=== PATIENT | male | born 1965 | race Caucasian/White ===

== ENCOUNTER 2017-12-26 14:45 | Observation (INO) | payer MEDICAID ==
[~2017-12-26] VITALS: Ht 188 cm; Wt 97.0 kg
[2017-12-26 15:29] LABS: BASOPHILS # (AUTO) 0.11 x10^3/uL (0-0.1); BASOPHILS % (AUTO) 1 % (0-1); EOSINOPHILS # (AUTO) 0.36 x10^3/uL (0-0.4); EOSINOPHILS % (AUTO) 4 % (1-7); LYMPHOCYTES # (AUTO) 1.64 x10^3/uL (1-3.4); LYMPHOCYTES % (AUTO) 18 % (22-44); MD NO; MEAN CORPUSCULAR HEMOGLOBIN 31.4 pg (27.5-34.5); MEAN CORPUSCULAR HGB CONC 34.2 g/dL (33.2-36.2); MEAN CORPUSCULAR VOLUME 91.9 fL (81-97); MEAN PLATELET VOLUME 9.3 fL (7.4-10.4); MONOCYTES # (AUTO) 0.82 x10^3/uL (0.2-0.8); MONOCYTES % (AUTO) 9 % (2-9); NEUTROPHILS # (AUTO) 6.27 x10^3/uL (1.8-6.8); NEUTROPHILS % (AUTO) 68 % (42-75); PLATELET COUNT 275 x10^3/uL (130-400); RED BLOOD COUNT 5.33 x10^6/uL (4.38-5.82); RED CELL DISTRIBUTION WIDTH 12.9 % (9.4-14.8)
[2017-12-26 15:39] LABS: ALBUMIN 4.2 g/dL (3.4-5.0); ANION GAP 8 mmol/L (5-15); CALCIUM 9.2 mg/dL (8.5-10.1); CHLORIDE 108 mmol/L (98-107); SALICYLATE LEVEL 2.7 mg/dL (2.8-20.0)
[2017-12-26 15:40] LABS: ACETAMINOPHEN < 2 mcg/mL (10-30)
[2017-12-26 15:47] LABS: AMPHETAMINE SCREEN, URINE Negative (Negative); BARBITURATE SCREEN, URINE Negative (Negative); BENZODIAZEPINE SCREEN, URINE Negative (Negative); CANNABINOID SCREEN, URINE Positive (Negative); METHADONE SCREEN, URINE Negative (Negative); OPIATE SCREEN, URINE Negative (Negative)
[2017-12-26 15:48] LABS: COCAINE SCREEN, URINE Negative (Negative)
[2017-12-26] MEDS ORDERED: DOCUSATE 100 MG CAPSULE PO PRN (20:00)
[2017-12-26] MEDS: NICOTINE 14MG/24 HR PATCH.TD24 TD SCH (20:00)
[2017-12-26] MEDS ORDERED: ONDANSETRON ODT 4 MG PO PRN (20:00)
[2017-12-26] MEDS ORDERED: ACETAMINOPHEN 325 MG TABLET PO PRN (20:00)
[2017-12-26] MEDS ORDERED: ZIPRASIDONE 20 MG INJ IM PRN (20:00)
[2017-12-26] MEDS ORDERED: FLUO40CA9 PO (20:36)
[2017-12-26] MEDS ORDERED: LITH300T3 PO (20:36)
[2017-12-26] MEDS ORDERED: LITH600C PO (20:36)
[2017-12-26] MEDS ORDERED: HALO5TAB5 PO (20:36)
[2017-12-26] MEDS ORDERED: ALBU1.25 INH (20:36)
[2017-12-26 20:48] VITALS: BP 142/92
[2017-12-27 08:05] VITALS: BP 125/72
[2017-12-27] MEDS ORDERED: ALBUTEROL SULFATE INH PRN (15:00)
[2017-12-27] MEDS: LORazepam 1MG TABLET PO PRN (18:06)
[2017-12-27] MEDS ORDERED: ALBUTEROL SULFATE 2.5 MG/3 ML ONE (18:10)
[2017-12-27] MEDS ORDERED: PHARMACY MAY ADJ FOR RENAL FX MC PRN (18:30)
[2017-12-27 19:45] VITALS: BP 108/69
[2017-12-27] MEDS: NICOTINE 14MG/24 HR PATCH.TD24 TD SCH (20:00)
[2017-12-27] MEDS ORDERED: LITHIUM CARBONATE 300 MG CAPSULE PO ONE (21:30)
[2017-12-28 08:15] VITALS: BP 118/78
[2017-12-28] MEDS: FLUOXETINE HCL 20 MG CAPSULE PO SCH (09:08)
[2017-12-28] MEDS: LORazepam 1MG TABLET PO PRN ×2 (09:16→17:35)
[2017-12-28 13:41] LABS: ANION GAP 5 mmol/L (5-15); CALCIUM 9.1 mg/dL (8.5-10.1); CHLORIDE 109 mmol/L (98-107)
[2017-12-28] MEDS: NICOTINE 14MG/24 HR PATCH.TD24 TD SCH (20:05)
[2017-12-28] MEDS: LITHIUM CARBONATE 300 MG CAPSULE PO SCH (20:53)
[2017-12-28 21:21] VITALS: BP 112/77
[2017-12-29 08:12] VITALS: BP 114/78
[2017-12-29] MEDS: LITHIUM CARBONATE 300 MG CAPSULE PO SCH ×2 (08:19→20:44)
[2017-12-29] MEDS: FLUOXETINE HCL 20 MG CAPSULE PO SCH (08:19)
[2017-12-29] MEDS: LORazepam 1MG TABLET PO PRN ×2 (10:47→17:45)
[2017-12-29] MEDS ORDERED: ALBUTEROL SULFATE 2.5 MG/3 ML ONE (12:40)
[2017-12-29] MEDS: ALBUTEROL SULFATE 2.5 MG/3 ML NPPB PRN (12:45)
[2017-12-29 16:43] LABS: FREE T4 (FREE THYROXINE) 1.03 ng/dL (0.76-1.46); THYROID STIMULATING HORMONE 0.83 mIU/L (0.358-3.740)
[2017-12-29 19:58] VITALS: BP 121/80
[2017-12-29] MEDS: NICOTINE 14MG/24 HR PATCH.TD24 TD SCH (20:46)
[2017-12-30 08:01] VITALS: BP 128/86
[2017-12-30] MEDS: FLUOXETINE HCL 20 MG CAPSULE PO SCH (09:04)
[2017-12-30] MEDS: LITHIUM CARBONATE 300 MG CAPSULE PO SCH ×2 (09:04→20:38)
[2017-12-30] MEDS: LORazepam 1MG TABLET PO PRN ×2 (09:08→17:01)
[2017-12-30] MEDS: ALBUTEROL SULFATE 2.5 MG/3 ML NPPB PRN (09:20)
[2017-12-30 19:39] VITALS: BP 106/70
[2017-12-30] MEDS: NICOTINE 14MG/24 HR PATCH.TD24 TD SCH (20:40)
[2017-12-30] MEDS: ZOLPIDEM 5MG TABLET PO PRN (20:41)
[2017-12-31 08:00] VITALS: BP 106/72
[2017-12-31] MEDS: LITHIUM CARBONATE 300 MG CAPSULE PO SCH ×2 (08:41→20:03)
[2017-12-31] MEDS: FLUOXETINE HCL 20 MG CAPSULE PO SCH (08:42)
[2017-12-31] MEDS: LORazepam 1MG TABLET PO PRN ×3 (08:47→18:16)
[2017-12-31] MEDS: ALBUTEROL SULFATE 2.5 MG/3 ML NPPB PRN ×2 (09:05→20:10)
[2017-12-31 19:44] VITALS: BP 110/69
[2017-12-31] MEDS: NICOTINE 14MG/24 HR PATCH.TD24 TD SCH (20:04)
[2017-12-31] MEDS: ZOLPIDEM 5MG TABLET PO PRN (20:06)
[2018-01-01] MEDS: FLUOXETINE HCL 20 MG CAPSULE PO SCH (08:09)
[2018-01-01] MEDS: LITHIUM CARBONATE 300 MG CAPSULE PO SCH ×2 (08:10→21:08)
[2018-01-01] MEDS: LORazepam 1MG TABLET PO PRN ×3 (08:14→17:15)
[2018-01-01 08:32] VITALS: BP 110/77
[2018-01-01] MEDS: ALBUTEROL SULFATE 2.5 MG/3 ML NPPB PRN (19:10)
[2018-01-01 19:31] VITALS: BP 108/76
[2018-01-01] MEDS: ZOLPIDEM 5MG TABLET PO PRN (21:07)
[2018-01-01] MEDS: NICOTINE 14MG/24 HR PATCH.TD24 TD SCH (21:08)
[2018-01-02] MEDS: LORazepam 1MG TABLET PO PRN ×3 (05:28→17:49)
[2018-01-02 07:51] VITALS: BP 118/79
[2018-01-02] MEDS: LITHIUM CARBONATE 300 MG CAPSULE PO SCH ×2 (08:13→20:37)
[2018-01-02] MEDS: FLUOXETINE HCL 20 MG CAPSULE PO SCH (08:13)
[2018-01-02] MEDS: ALBUTEROL SULFATE 2.5 MG/3 ML NPPB PRN (09:33)
[2018-01-02 19:28] VITALS: BP 102/67
[2018-01-02] MEDS: NICOTINE 14MG/24 HR PATCH.TD24 TD SCH ×2 (20:00→20:36)
[2018-01-02] MEDS: ZOLPIDEM 5MG TABLET PO PRN (20:36)
[2018-01-03 08:07] VITALS: BP 104/58
[2018-01-03] MEDS: LITHIUM CARBONATE 300 MG CAPSULE PO SCH ×2 (08:23→20:34)
[2018-01-03] MEDS: FLUOXETINE HCL 20 MG CAPSULE PO SCH (08:23)
[2018-01-03] MEDS: LORazepam 1MG TABLET PO PRN ×3 (08:24→19:13)
[2018-01-03] MEDS: ALBUTEROL SULFATE 2.5 MG/3 ML NPPB SCH ×3 (09:00→20:07)
[2018-01-03] MEDS: NICOTINE 14MG/24 HR PATCH.TD24 TD SCH (19:15)
[2018-01-03 19:23] VITALS: BP 120/83
[2018-01-03] MEDS: ZOLPIDEM 5MG TABLET PO PRN (20:34)
[2018-01-04] MEDS: LITHIUM CARBONATE 300 MG CAPSULE PO SCH ×2 (08:06→19:42)
[2018-01-04] MEDS: FLUOXETINE HCL 20 MG CAPSULE PO SCH (08:07)
[2018-01-04] MEDS: LORazepam 1MG TABLET PO PRN ×2 (08:11→15:30)
[2018-01-04 08:25] VITALS: BP 103/54
[2018-01-04] MEDS: ALBUTEROL SULFATE 2.5 MG/3 ML NPPB SCH ×2 (09:00→20:40)
[2018-01-04] MEDS ORDERED: ZIPRASIDONE 20 MG INJ IM PRN (13:30)
[2018-01-04 19:35] VITALS: BP 115/71
[2018-01-04] MEDS: ZOLPIDEM 5MG TABLET PO PRN (19:42)
[2018-01-04] MEDS: NICOTINE 14MG/24 HR PATCH.TD24 TD SCH (19:42)
[2018-01-05] MEDS: LORazepam 1MG TABLET PO PRN ×2 (05:17→10:02)
[2018-01-05 08:00] VITALS: BP 125/74
[2018-01-05] MEDS: LITHIUM CARBONATE 300 MG CAPSULE PO SCH (08:37)
[2018-01-05] MEDS: FLUOXETINE HCL 20 MG CAPSULE PO SCH (08:37)
[2018-01-05] MEDS: ALBUTEROL SULFATE 2.5 MG/3 ML NPPB SCH (09:00)
== END 2018-01-05 11:04 | disposition home or self-care (01) ==
LOC: ED 16:32 → EDIP 18:57 → SUATTDRO 19:07 → 2N 20:28
PROVIDERS: ADMIT Hospitalist; ATTEND Hospitalist
DX: R45.850 Homicidal ideations (principal); J45.909 Unspecified asthma, uncomplicated; F41.9 Anxiety disorder, unspecified; F31.30 Bipolar disorder, current episode depressed, mild or moderate severity, unspecified; F29 Unspecified psychosis not due to a substance or known physiological condition; F17.210 Nicotine dependence, cigarettes, uncomplicated; E86.0 Dehydration; N17.9 Acute kidney failure, unspecified
CPT/HCPCS: 36415; 80048; 80178; 80307; 80329; 82040; 84439; 84443; 85025; 94640; 99285; G0378; J7613; G0480

== ENCOUNTER 2020-08-09 03:36 | Observation (INO) | payer MEDICAID ==
[~2020-08-09] VITALS: Ht 188 cm; Wt 88.0 kg
[~2020-08-09 03:36] MED LIST: ALBU1.25 INH; ASPI-963 PO; ATOR-2 PO; DIPH25CA61 PO; FLUO40CA2 PO; FLUO40CA9 PO; HALO5TAB5 PO; LITH150C PO; LITH300T3 PO; LITH600C PO; METO25TA35 PO; SYMBICORT; TICA90TA PO
--- NOTE | 2020-08-09 04:55 | NUR ---
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 Patient is resting comfortably in bed. Bed in lowest, rails engaged, call light on lap. UA OBTAINED AND SENT TO LAB. LE.
[2020-08-09 05:15] LABS: MICROSCOPIC AUTO
[2020-08-09] MEDS ORDERED: KETOROLAC 30 MG/1 ML ONE (05:22)
[2020-08-09 05:24] LABS: BASOPHILS % (AUTO) 1 % (0-1); EOSINOPHILS % (AUTO) 6 % (1-7); LYMPHOCYTES % (AUTO) 18 % (22-44); MEAN CORPUSCULAR HEMOGLOBIN 31.5 pg (27.5-34.5); MEAN CORPUSCULAR HGB CONC 35.2 g/dL (33.2-36.2); MEAN PLATELET VOLUME 10.1 fL (7.4-10.4); MONOCYTES % (AUTO) 13 % (2-9); NEUTROPHILS % (AUTO) 63 % (42-75); PLATELET COUNT 258 x10^3/uL (130-400); RED BLOOD COUNT 5.18 x10^6/uL (4.38-5.82); RED CELL DISTRIBUTION WIDTH 13.2 % (9.4-14.8)
[2020-08-09] MEDS ORDERED: KETOROLAC 30 MG/1 ML IVPush ONE (05:30)
[2020-08-09] MEDS ORDERED: SODIUM CHLORIDE FLUSH 10ML SYR IVF ONE (05:30)
[2020-08-09 05:32] LABS: ALANINE AMINOTRANSFERASE 21 U/L (12-78); ALBUMIN 3.6 g/dL (3.4-5.0); ANION GAP 5 mmol/L (5-15); CALCIUM 8.6 mg/dL (8.5-10.1); CHLORIDE 110 mmol/L (98-107)
[2020-08-09 05:35] LABS: ALKALINE PHOSPHATASE 56 U/L (45-117); BILIRUBIN,TOTAL 0.5 mg/dL (0.2-1.0); CREATININE 1.22 mg/dL (0.7-1.3); TOTAL PROTEIN 7.4 g/dL (6.4-8.2)
--- NOTE | 2020-08-09 05:42 | NUR ---
PT MEDICATED PER MAR FOR PAIN, NAD, Patient is resting comfortably in bed. Bed in lowest, rails engaged, call light on lap. Vital Signs within normal limits. WCTM.
--- NOTE | 2020-08-09 06:49 | NUR ---
Patient is resting comfortably in bed. Bed in lowest, rails engaged, call light on lap. Vital Signs within normal limits. WCTM. REPORT TO ASHU NG, PT CARE TRANSFERRED AT THIS TIME.
--- NOTE | 2020-08-09 07:09 | NUR ---
REPORT FROM REYMUNDO, ASSUME CARE OF PT AT THIS TIME.
[2020-08-09] MEDS ORDERED: HYDROmorphone 1 MG/ML, 1ML INJ IV ONE (07:30)
--- NOTE | 2020-08-09 07:30 | NUR ---
ALL RESULTS BACK, PT FOR RECHECK.
[2020-08-09] MEDS ORDERED: HYDROmorphone 1 MG/ML, 1ML INJ ONE (07:37)
[2020-08-09] MEDS ORDERED: ONDANSETRON 2MG/ML, 2ML ONE ×3 (07:55→11:06)
[2020-08-09] MEDS ORDERED: ONDANSETRON 2MG/ML, 2ML IVPush ONE (08:00)
--- NOTE | 2020-08-09 08:01 | NUR ---
PT MEDICATED PER ERP ORDER FOR PAIN, STATES SLIGHT NAUSEA WITH MEDICATION. ERP NOTIFIED, ZOFRAN GIVEN. VSS/UPDATED IN COMPUTER.
--- NOTE | 2020-08-09 08:10 | NUR ---
MICHAEL DELANEY COLLECTED/WALKED TO LAB.
[2020-08-09] MEDS ORDERED: SODIUM CHLORIDE 0.9% 1,000ML IVBOLUS ONE (08:30)
--- NOTE | 2020-08-09 08:44 | NUR ---
WHO FORM STARTED, MED REC COMPLETED. BELONGING LIST COMPLETED/SIGNED BY PT.
[2020-08-09] MEDS ORDERED: OMNIPAQUE 350 MG/ML, 50 ML BOTTLE ONE (09:51)
[2020-08-09] MEDS ORDERED: CEFAZOLIN 1,000 MG ONE (09:54)
[2020-08-09] MEDS ORDERED: PROPOFOL 10 MG/ML, 20ML ONE (09:54)
[2020-08-09] MEDS ORDERED: SUCCINYLCHOLINE 20 MG/ML, 10ML ONE (09:54)
[2020-08-09] MEDS ORDERED: MIDAZOLAM 1 MG/ML, 2ML ONE (09:57)
[2020-08-09] MEDS ORDERED: ONDANSETRON 2MG/ML, 2ML IVPush PRN (11:00)
[2020-08-09] MEDS ORDERED: LABETALOL 5MG/ML, 20ML IV PRN (11:00)
[2020-08-09] MEDS ORDERED: ALBUTEROL SULFATE 2.5 MG/3 ML NPPB PRN (11:00)
[2020-08-09] MEDS ORDERED: FENTANYL PF 100 MCG/2ML IV PRN (11:00)
[2020-08-09] MEDS ORDERED: PROMETHAZINE 25 MG/ML, 1ML IV PRN (11:00)
[2020-08-09] MEDS ORDERED: METOCLOPRAMIDE 5 MG/ML, 2ML IV PRN (11:00)
[2020-08-09] MEDS ORDERED: OXYcodone 5 MG/5 ML ORAL.SOL UDC PO PRN (11:00)
[2020-08-09] MEDS ORDERED: DIAZEPAM 5 MG/ML, 2ML IV PRN ×2 (11:00)
[2020-08-09] MEDS ORDERED: HYDROmorphone 1 MG/ML, 1ML INJ IV PRN ×2 (11:00→13:30)
[2020-08-09] MEDS ORDERED: MEPERIDINE/PF 25MG/0.5ML IVPush PRN (11:00)
[2020-08-09] MEDS ORDERED: hydrALAzine 20 MG/ML, 1ML IV PRN (11:00)
[2020-08-09] MEDS ORDERED: KETOROLAC 30 MG/1 ML IV PRN ×2 (11:00→13:30)
[2020-08-09] MEDS ORDERED: hydrALAzine 20 MG/ML, 1ML ONE (11:10)
[2020-08-09] MEDS ORDERED: OXYcodone 5 MG/5 ML ORAL.SOL UDC ONE (11:14)
[2020-08-09 11:45] VITALS: BP 169/83
[2020-08-09 13:21] VITALS: BP 161/92
[2020-08-09] MEDS ORDERED: HYDROcodone/APAP 5/325 TABLET PO PRN (13:30)
[2020-08-09] MEDS ORDERED: OXYBUTYNIN CHLORIDE 5 MG TABLET PO PRN (13:30)
[2020-08-09] MEDS ORDERED: ONDANSETRON 2MG/ML, 2ML IV PRN (13:30)
[2020-08-09] MEDS: LACTATED RINGERS 1,000 ML IV SCH (13:30)
[2020-08-09 16:45] VITALS: BP 163/83
[2020-08-09 18:47] VITALS: BP 121/73
[2020-08-09 20:13] VITALS: BP 133/84
[2020-08-09] MEDS ORDERED: FENTANYL PF 100 MCG/2ML ONE (20:54)
[2020-08-09] MEDS ORDERED: DIPHENHYDRAMINE 50 MG CAPSULE PO PRN (21:00)
[2020-08-09] MEDS ORDERED: PROMETHAZINE 25 MG/ML, 1ML IM PRN (22:30)
[2020-08-09] MEDS ORDERED: ALBUTEROL HFA 90 MCG/SPRAY INH PRN (23:30)
[2020-08-10 00:37] VITALS: BP 140/84
[2020-08-10] MEDS ORDERED: ALBUTEROL SULFATE 2.5 MG/3 ML NPPB PRN (02:00)
[2020-08-10] MEDS: LACTATED RINGERS 1,000 ML IV SCH ×2 (02:03→11:00)
[2020-08-10 04:10] VITALS: BP 131/74
[2020-08-10 07:32] VITALS: BP 138/85
[2020-08-10] MEDS ORDERED: TAMSULOSIN 0.4 MG CAP.ER.24H PO SCH (09:00)
[2020-08-10] MEDS ORDERED: FLUOXETINE HCL 20 MG CAPSULE PO SCH (09:00)
[2020-08-10] MEDS ORDERED: DIPHENHYDRAMINE 25 MG CAPSULE PO SCH (09:00)
[2020-08-10 09:08] VITALS: BP 138/85
[2020-08-10] MEDS ORDERED: ALBU2.5V NPPB (10:30)
[2020-08-10] MEDS ORDERED: OXYB5TAB10 PO (10:30)
[2020-08-10 12:11] LABS: MICROSCOPIC INDICATED
[2020-08-10 14:17] VITALS: BP 135/88
== END 2020-08-10 14:50 | disposition home or self-care (01) ==
LOC: ED 05:23 → EDIP 08:09 → 4NE 11:45
PROVIDERS: ADMIT Urology; ATTEND Urology
DX: N13.2 Hydronephrosis with renal and ureteral calculous obstruction (principal); Z20.822 Contact with and (suspected) exposure to COVID-19; I10 Essential (primary) hypertension; J45.909 Unspecified asthma, uncomplicated; E78.5 Hyperlipidemia, unspecified; F41.9 Anxiety disorder, unspecified; R11.2 Nausea with vomiting, unspecified; F12.90 Cannabis use, unspecified, uncomplicated; N40.0 Benign prostatic hyperplasia without lower urinary tract symptoms; I25.2 Old myocardial infarction; F17.200 Nicotine dependence, unspecified, uncomplicated; Z79.82 Long term (current) use of aspirin; Z79.899 Other long term (current) drug therapy; Z87.442 Personal history of urinary calculi; Z95.5 Presence of coronary angioplasty implant and graft
CPT/HCPCS: 36415; 52005; 74176; 74420; 80053; 81001; 82360; 83690; 85025; 87086; 87635; 88300; 96361; 96374; 96375; 96376; 99284; C1758; C1769; C2617; G0378; J0330; J0360; J0690; J1170; J1885; J2250; J2405; J2704; J3010; J7120; Q0163; Q9967

== ENCOUNTER 2020-08-14 12:53 | Emergency (ER) | payer MEDICAID ==
[~2020-08-14] VITALS: Ht 188 cm; Wt 94.8 kg
[~2020-08-14 12:53] MED LIST changes: +ALBU2.5V NPPB; +OXYB5TAB10 PO
[2020-08-14 13:31] LABS: BASOPHILS % (AUTO) 0 % (0-1); EOSINOPHILS % (AUTO) 11 % (1-7); LYMPHOCYTES % (AUTO) 27 % (22-44); MEAN CORPUSCULAR HEMOGLOBIN 31.4 pg (27.5-34.5); MEAN CORPUSCULAR HGB CONC 34.7 g/dL (33.2-36.2); MEAN PLATELET VOLUME 9.6 fL (7.4-10.4); MONOCYTES % (AUTO) 13 % (2-9); NEUTROPHILS % (AUTO) 49 % (42-75); PLATELET COUNT 290 x10^3/uL (130-400); RED BLOOD COUNT 5.22 x10^6/uL (4.38-5.82); RED CELL DISTRIBUTION WIDTH 13.5 % (9.4-14.8)
[2020-08-14 13:47] LABS: ALBUMIN 3.7 g/dL (3.4-5.0); ANION GAP 4 mmol/L (5-15); CHLORIDE 111 mmol/L (98-107); CREATININE 1.24 mg/dL (0.7-1.3)
[2020-08-14 14:21] LABS: MD SCAN
--- NOTE | 2020-08-14 15:59 | NUR ---
FIRST COMMUNICATION WITH PT: PT STATES HE HAD A RIGHT KIDNEY STENT PLACED THREE DAYS, STRING FROM [place] MOVING. PT WAS TOLD TO COME TO ED IF THIS HAPPENS. PT DENIES ANY OTHER SX. PT STATES HE URINATED JUST PRIOR TO ARRIVE TO ROOM. PT CONNECTED TO MONITORNIG. CALL LIGHT IN REACH.
[2020-08-14 16:01] VITALS: BP 170/111
--- NOTE | 2020-08-14 16:13 | NUR ---
PT AT XRAY
--- NOTE | 2020-08-14 16:28 | NUR ---
ERMD TO CONSULT UROLOGY. ERMD NOTIFIED PT UNABLE TO PROVIDE URINE SAMPLE AT THIS TIME, NO NEW ORDERS.
--- NOTE | 2020-08-14 17:12 | NUR ---
ERMD AT BEDSIDE TO UPDATE PT ON POC.
== END 2020-08-14 17:25 | disposition home or self-care (01) ==
LOC: ED 17:10
DX: N20.1 Calculus of ureter (principal); I10 Essential (primary) hypertension; J45.909 Unspecified asthma, uncomplicated
CPT/HCPCS: 36415; 74018; 80048; 82040; 85025; 99284